=== PATIENT | female | born 1985 | race Two or more races ===

== ENCOUNTER 2017-04-05 08:19 | Emergency (ER) | payer SELFPAY ==
[~2017-04-05] VITALS: Ht 157.5 cm; Wt 54.4 kg
[2017-04-05 08:20] VITALS: BP 132/89
[2017-04-05] MEDS: Ketorolac 30mg Inj IM ONE ×2 (08:45→09:30)
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
[2017-04-05 09:40] VITALS: BP 132/89
--- NOTE | 2017-04-05 09:50 | Diagnostic Imaging Report ---
Indication: Pain Findings: 3 views of the right shoulder were obtained. No acute fractures, malalignment, erosions or periostitis are identified. Bones are osteopenic. Soft tissues are unremarkable. Impression: Negative for acute injury
--- NOTE | 2017-04-05 10:10 | Diagnostic Imaging Report ---
Indications: hip pain Findings: Two views of the right hip were obtained. No acute fracture is demonstrated. Alignment of the hip is within normal limits. Soft tissues are unremarkable. Impression: Negative for acute injury.
== END 2017-04-05 09:45 | disposition home or self-care (01) ==
LOC: EMR 08:36
DX: S40.011A Contusion of right shoulder, initial encounter (principal); S70.01XA Contusion of right hip, initial encounter; V09.9XXA Pedestrian injured in unspecified transport accident, initial encounter; Y93.01 Activity, walking, marching and hiking; Y92.410 Unspecified street and highway as the place of occurrence of the external cause
CPT/HCPCS: 99283